=== PATIENT | female | born 1960 | race African-American/Black ===

== ENCOUNTER 2017-06-03 14:46 | Emergency (ER) | payer OTHER ==
[2017-06-03 15:22] LABS: #Basophils 0.1 thou/uL (0.0-0.2); #Eosinphils 0.1 thou/uL (0.0-0.7); #Lymphocytes 2.2 thou/uL (1.20-3.40); #Monocytes 0.4 thou/uL (0.11-0.59); #Neutrophils 3.6 thou/uL (1.40-6.50); %Eosinophils 1.6 % (0.0-10.0); %Lymphocytes 34.4 % (21.0-51.0); %Monocytes 6.7 % (0.0-10.0); %Neutrophils 56.3 % (42.0-75.0); Hemoglobin 13.1 g/dL (12.0-16.0); Mean Corpuscular HGB CONC 32.4 g/dL (32.0-36.0); Mean Corpuscular Volume 95.8 fl (81.0-99.0); Mean Platelet Volume 7.5 fL (7.4-10.4); Platelet Count 309 thou/uL (130-400); RBC Distribution Width 11.2 % (11.5-14.5); Red Blood Cell (RBC) Count 4.22 mill/uL (4.20-5.40); White Blood Cell (WBC) Count 6.4 thou/uL (4.8-10.8)
[2017-06-03 15:40] LABS: Lactic Acid 2.2 mmol/L (0.5-2.2)
[2017-06-03 15:42] LABS: Bilirubin Negative (Negative); Blood, Urine Negative (Negative); Clarity CLEAR (Clear); Glucose, Urine (Dipstick) >=1000 mg/dL (Negative); Leukocyte Negative (Negative); Nitrite Negative (Negative); Protein, Urine (Dipstick) Negative (Neg-Trace); Specific Gravity, Urine 1.025 (1.002-1.036)
[2017-06-03 15:46] LABS: ALT (SGPT) 13 U/L (8-55); AST (SGOT) 12 U/L (5-34); Albumin 3.9 g/dL (3.5-5.0); Alkaline Phosphatase 109 U/L (40-150); Anion Gap 14 mmol/L (10-20); BUN (Urea Nitrogen) 9 mg/dL (9.8-20.1); Bilirubin, Total 0.4 mg/dL (0.2-1.2); Calc. Creatinine Clearance 0 mL/min (70-130); Calcium 9.4 mg/dL (7.8-10.44); Carbon Dioxide 24 mmol/L (22-29); Chloride 104 mmol/L (98-107); Estimated GFR-MDRD 55; Globulin 2.8 g/dL (2.4-3.5); Glucose 450 mg/dL (70-105); Lipase 6 U/L (8-78); Potassium 5.1 mmol/L (3.5-5.1); Protein, Total 6.7 g/dL (6.0-8.3); Sodium 137 mmol/L (136-145)
[2017-06-03 15:51] LABS: Troponin I Less than 0.010 ng/mL (< 0.028)
[2017-06-03] MEDS ORDERED: Insulin Regular 300 UNITS/3 ML VIAL ONE (16:09)
--- NOTE | 2017-06-03 16:13 | RAD ---
FRONTAL RADIOGRAPH OF CHEST PORTABLE UPRIGHT: Date: 06/03/17 COMPARISON: 02/25/17 HISTORY: Pain, emergency exam. FINDINGS: There is mild increased linear interstitial density with pulmonary hyperinflation. Heart and mediast inal contours are unremarkable. There is no pneumothorax or pleural fluid and no focal consolidation or alveolar edema. IMPRESSION: Interstitial prominence and pulmonary hyperinflation. Question COPD. No acute findings. POS: [facility]
== END 2017-06-03 18:24 | disposition home or self-care (01) ==
LOC: ERS 14:46
DX: E11.65 Type 2 diabetes mellitus with hyperglycemia (principal); E86.0 Dehydration; E78.5 Hyperlipidemia, unspecified; I10 Essential (primary) hypertension; E11.40 Type 2 diabetes mellitus with diabetic neuropathy, unspecified; F41.9 Anxiety disorder, unspecified; F17.210 Nicotine dependence, cigarettes, uncomplicated; Z79.4 Long term (current) use of insulin; Z79.899 Other long term (current) drug therapy
CPT/HCPCS: 36415; 36416; 71045; 80053; 81003; 82010; 83605; 83690; 83880; 84484; 85025; 93005; 96361; 96374; J1815

== ENCOUNTER 2017-07-02 08:27 | Inpatient (IN) | payer OTHER ==
[2017-07-02] MEDS ORDERED: Sodium Bicarb 50 MEQ/50 ML Abboject 8.4% SYRINGE ONE ×3 (09:00→15:43)
[2017-07-02] MEDS ORDERED: EPINEPHrine 1 MG/10 ML Abboject SYRINGE ONE ×3 (09:00→12:10)
--- NOTE | 2017-07-02 09:33 | RAD ---
CHEST 1 VIEW: HISTORY: Altered mental status. Atrial fibrillation. Pain. COMPARISON: Chest radiograph 4 . FINDINGS: Lungs are without focal airspace consolidation, pneumothorax, or effusion. Cardiac silhouette and me diastinal contours appear within normal limits. No acute osseous abnormality. IMPRESSION: 1. No acute intrathoracic abnormality. No significant change. 2. Mild obstructive pulmonary disease. POS: [facility]
[2017-07-02 09:37] LABS: Hemoglobin 10.9 g/dL (12.0-16.0); Mean Corpuscular HGB CONC 30.2 g/dL (32.0-36.0); Mean Corpuscular Hemoglobin 30.1 pg (27.0-31.0); Mean Corpuscular Volume 99.6 fl (81.0-99.0); Mean Platelet Volume 9.5 fL (7.4-10.4); Platelet Count 182 thou/uL (130-400); RBC Distribution Width 11.7 % (11.5-14.5); Red Blood Cell (RBC) Count 3.61 mill/uL (4.20-5.40); White Blood Cell (WBC) Count 18.9 thou/uL (4.8-10.8)
[2017-07-02] MEDS ORDERED: Diltiazem 125 MG in Sodium Chloride 0.9% 100 ML IVPB SCH (09:45)
[2017-07-02 09:55] LABS: Base Excess-Venous -24.7 mmol/L (0 (+/- 2.5)); Bicarbonate (HCO3v) 7.2 mmol/L (1.0-85.0); CO2 Tension (PvCO2) 34.3 mmHg (41.0-51.0); Calcium, Ionized 0.82 mmol/L (1.12-1.32); O2 Tension (PvO2) 59.8 mmHg (35.0-45.0); Potassium 3.6 mmol/L (3.4-4.7); T. Carbon Dioxide 8.2 mmol/L (1.0-85.0); pH (Venous) 6.928 (7.35-7.45); vO2 Saturation-calc 71.3 % (94-98)
[2017-07-02] MEDS ORDERED: Lorazepam 2 MG/ML VIAL ONE (09:57)
[2017-07-02 09:59] LABS: Troponin I 0.021 ng/mL (< 0.028)
[2017-07-02 09:59] LABS: Bilirubin Negative (Negative); Blood, Urine Large (Negative); Clarity TURBID (Clear); Glucose, Urine (Dipstick) 500 mg/dL (Negative); Leukocyte Large (Negative); Nitrite Negative (Negative); Protein, Urine (Dipstick) 300 mg/dL (Neg-Trace); Specific Gravity, Urine 1.015 (1.002-1.036)
[2017-07-02 10:00] LABS: Band 28 % (5-11); Hypochromia SLIGHT = 6-15 cells (100X) (0-5/hpf); Lymphocytes 15 % (21-51); MDiff Complete? YES; Monocytes 4 % (0-10); Neutrophil 51 % (42-75); PLT Morphology Comment Appears Adequate; Reactive Lymphocytes 2 % (0-10); Toxic Granulation SLIGHT
[2017-07-02 10:01] LABS: Bacteria/HPF 4+ HPF (None Seen)
[2017-07-02 10:02] LABS: ALT (SGPT) 90 U/L (8-55); AST (SGOT) 143 U/L (5-34); Albumin 2.6 g/dL (3.5-5.0); Alkaline Phosphatase 230 U/L (40-150); Anion Gap 35 mmol/L (10-20); BUN (Urea Nitrogen) 58 mg/dL (9.8-20.1); Bilirubin, Total 1.1 mg/dL (0.2-1.2); Calc. Creatinine Clearance 0 mL/min (70-130); Calcium 7.3 mg/dL (7.8-10.44); Carbon Dioxide 9 mmol/L (22-29); Chloride 72 mmol/L (98-107); Estimated GFR-MDRD 10; Globulin 2.3 g/dL (2.4-3.5); Lipase 19 U/L (8-78); Magnesium 2.3 mg/dL (1.6-2.6); Protein, Total 4.9 g/dL (6.0-8.3); Sodium 112 mmol/L (136-145)
[2017-07-02 10:05] LABS: CKMB 164.2 ng/mL (0-6.6)
[2017-07-02 10:13] LABS: Pathc Cast-AUWi Flag 16.43 (0-2.49)
[2017-07-02 10:24] LABS: Hyaline Casts/LPF 0-3 HYALINE CAST LPF (0-3 Hyaline); Other Casts/LPF None Seen LPF (0-3 Hyaline); Transitional Epithelial 0-3 HPF (0-3)
[2017-07-02] MEDS ORDERED: Aspirin 300 MG Suppository ONE (10:49)
[2017-07-02] MEDS ORDERED: INSULIN REGULAR IVPB SCH (11:00)
[2017-07-02] MEDS ORDERED: ADMIXTURE FEE IVPB SCH (11:00)
[2017-07-02] MEDS ORDERED: SODIUM CHLORIDE IVPB SCH (11:00)
[2017-07-02] MEDS ORDERED: Piperacillin/Tazobactam 4.5 GM in Sodium Chloride 0.9% 100 ML IVPB SCH ×2 (12:00→15:00)
[2017-07-02] MEDS ORDERED: EPINEPHrine 1 MG/ML AMP ONE (12:02)
--- NOTE | 2017-07-02 12:14 | CT ---
NONCONTRAST CT HEAD: DATE: 07/02/17. HISTORY: Elevated glucose and altered mental status. COMPARISON: 04/13/05. FINDINGS: The basal ganglia appear hyperdense bilaterally which is overall nonspecific. However, metabolic abn ormality could not be entirely excluded. There is no evidence of an acute cortical infarction, hemor rhage, mass effect, or midline shift. Ventricular system is normal in size, shape, and position. Vi sualized paranasal sinuses and mastoid air cells are clear. Calvarial structures are intact. The increased density appearance of the basal ganglia was not appreciated on the prior exam. IMPRESSION: 1. Mild asymmetric increased density of each lentiform nucleus, which is asymmetric compared to the adjacent thalamus. Metabolic process could not be excluded. MRI of brain is recommended for further evaluation. 2. No evidence of an acute infarction or hemorrhage. 3. The above findings were discussed with Dr. Otero in the emergency department on 07/02/17 at 1148 hours. POS: [facility]
[2017-07-02 12:18] LABS: Glucose 1100 mg/dL (70-105)
[2017-07-02] MEDS ORDERED: Ventilator Sedation Protocol 1 EACH FS ONE (12:44)
[2017-07-02] MEDS ORDERED: Sodium Chloride 0.9% 1,000 ML IV SCH ×2 (12:45→14:30)
[2017-07-02] MEDS ORDERED: NS 0.9% w/ 20 MEQ KCL 1,000 ML IV PRN ×2 (12:48)
[2017-07-02] MEDS ORDERED: CCU Electrolyte Replacement 1 EACH IVPB ONE (12:48)
[2017-07-02] MEDS ORDERED: D5 1/2 NS w/20 mEq KCL 1,000 ML IV PRN (12:48)
[2017-07-02] MEDS ORDERED: Sodium Chloride 0.9% 1,000 ML IV PRN ×4 (12:48)
[2017-07-02] MEDS ORDERED: Dextrose 5 %-0.45 % NaCl 1,000 ML IV PRN (12:48)
[2017-07-02] MEDS ORDERED: Fentanyl BOLUS 250 ML IVPB PRN (12:59)
[2017-07-02] MEDS ORDERED: Morphine 4 MG/ML VIAL SLOW IVP PRN ×2 (12:59→17:37)
[2017-07-02] MEDS ORDERED: fentaNYL Citrate/PF 2,000 MCG in Sodium Chloride 0.9% 60 ML IV SCH (12:59)
[2017-07-02] MEDS ORDERED: Propofol BOLUS 1,000 MG/100 ML VIAL IV PRN (12:59)
[2017-07-02] MEDS ORDERED: Lorazepam 2 MG/ML VIAL SLOW IVP PRN (12:59)
[2017-07-02] MEDS ORDERED: Propofol 1,000 MG/100 ML VIAL IV PRN (12:59)
--- NOTE | 2017-07-02 12:59 | RAD ---
AP VIEW CHEST: HISTORY: Status post intubation. FINDINGS: AP view chest is obtained. Comparison is made to a previous exam from 07/02/17. AP view chest demonstrates a nasogastric tube in lace. The patient is intubated. Endotracheal tube is in good position. The lungs are well aerated. No evidence of acute intrathoracic abnormality is seen. No evidence of effusions, pneumonia, or pneumothorax is seen. IMPRESSION: Unremarkable AP view chest. Endotracheal tube is in good position. POS: [facility]
[2017-07-02 13:11] LABS: Actual Bicarbonate (HCO3a) 6.9 mEq/L (22-26); Base Excess (BEa) -26.6 mEq/L (0 (+/-) 2.5); CO2 Tension 45.2 mmHg (35.0-45.0); Calcium, Ionized 0.9 mmol/L (1.12-1.30); Hematocrit-ABG 42.1 % (36.0-47.0); Hemoglobin (Hb) 9.8 g/dL (12.0-16.0); O2 Tension (PaO2) 357.1 mmHg (80.0-100.0)
[2017-07-02 13:12] LABS: Puncture Site RBA
[2017-07-02] MEDS ORDERED: Sodium Bicarbonate 150 MEQ in Sodium Chloride 0.45% 1,000 ML IV SCH (13:15)
[2017-07-02 13:19] LABS: Mean Corpuscular HGB CONC 30.9 g/dL (32.0-36.0); Mean Corpuscular Hemoglobin 31.4 pg (27.0-31.0); Mean Platelet Volume 9.5 fL (7.4-10.4); Platelet Count 153 thou/uL (130-400); RBC Distribution Width 11.7 % (11.5-14.5)
[2017-07-02] MEDS ORDERED: Vancomycin HCl 1 GM in Sodium Chloride 0.9% 250 ML 250 ML IVPB SCH (13:30)
[2017-07-02 13:37] LABS: Band 36 % (5-11); Lymphocytes 19 % (21-51); MDiff Complete? YES; Metamyelocyte 10 % (0-0); Monocytes 6 % (0-10); Myelocyte 6 % (0-0); Neutrophil 23 % (42-75); Nucleated RBC 1 % (0); PLT Morphology Comment Appears Adequate; Reflex for Review?? YES; Toxic Granulation MODERATE; Vacuoles MODERATE
[2017-07-02] MEDS ORDERED: Norepinephrine 8 MG/0.9% NS 250 ML ONE (13:50)
[2017-07-02 14:03] LABS: ALT (SGPT) 97 U/L (8-55); AST (SGOT) 195 U/L (5-34); Albumin 2.3 g/dL (3.5-5.0); Alkaline Phosphatase 608 U/L (40-150); BUN (Urea Nitrogen) 59 mg/dL (9.8-20.1); Bilirubin, Total 0.9 mg/dL (0.2-1.2); Calc. Creatinine Clearance 0 mL/min (70-130); Calcium 7.5 mg/dL (7.8-10.44); Carbon Dioxide Less than 8 mmol/L (22-29); Chloride 76 mmol/L (98-107); Estimated GFR-MDRD 10; Globulin 2.8 g/dL (2.4-3.5); Glucose 1068 mg/dL (70-105); Potassium 4.1 mmol/L (3.5-5.1); Protein, Total 5.1 g/dL (6.0-8.3); Sodium 115 mmol/L (136-145)
[2017-07-02 14:04] LABS: Lactic Acid 18.2 mmol/L (0.5-2.2)
[2017-07-02] MEDS ORDERED: Sodium Bicarbonate 150 MEQ in Dextrose 5% in Water 850 ML IV SCH (14:15)
[2017-07-02] MEDS ORDERED: Amiodarone In Dextrose 200 ML IVPB SCH (14:15)
[2017-07-02] MEDS ORDERED: Lacri-Lube Opth Oint 3.5 GM TUBE EA EYE PRN (14:28)
[2017-07-02] MEDS ORDERED: Sodium Bicarb 50 MEQ/50 ML Abboject 8.4% SYRINGE IVP SCH (14:30)
[2017-07-02] MEDS ORDERED: Vasopressin 40 UNIT, Admixture Fee 1 EACH in Sodium Chloride 0.9% 100 ML IV SCH (14:30)
--- NOTE | 2017-07-02 14:51 | CON ---
DATE OF CONSULTATION: 07/02/2017 SERVICE: Pulmonary Medicine. REASON FOR CONSULTATION: Respiratory failure. HISTORY OF PRESENT ILLNESS: The patient has a 56-year-old -[place] female with past medical history significant for medical noncompliance and schizophrenia. Apparently, she does not take any of her medications. Either way, home health was out taking a look at her. She was seen by then roughly 3 days ago. She had so much weakness. She was crawling around in her hands and knees. The home health gentle wanted her to go to the emergency department. She refused to go and ask the home health agent not to tell anybody that she was so sick. Apparently, she has been telling people recently that she is exhausted with all of her medical reflections and is ready to no longer continue forward. Either way, she was found to be essentially nonresponsive 3 days later on the morning of admission. She was brought to the emergency department. Initially, she was breathing fairly well. She was alert and was able to talk to some of the providers. That being said, after initiation of some antibiotics, she decompensated. She had a bradyarrhythmic event. She required a very brief course of chest compressions. She had spontaneous return of circulation, but at that time, she was intubated and lying. She got 3 liters of fluid, and antibiotics. She is unable to provide any historical elements because of her current condition. PAST MEDICAL HISTORY: 1. Type 2 diabetes mellitus. 2. Hypertension. 3. Dyslipidemia. 4. Peripheral neuropathy. 5. Schizophrenia. 6. Medical noncompliance. PAST SURGICAL HISTORY: 1. Hysterectomy. 2. Right foot surgery. ALLERGIES: No known drug allergies. MEDICATIONS: List of her inpatient medications were reviewed. Multiple updates were made. FAMILY HISTORY: Noncontributory. SOCIAL HISTORY: Negative for known tobacco, alcohol or illicit drug use. REVIEW OF SYSTEMS: This cannot be obtained as the patient is currently intubated. PHYSICAL EXAMINATION: VITAL SIGNS: Currently afebrile. She is actually hypothermic a warmer is in place. Pulse ranges from 50-120. Blood pressure is 75/50, respirations 28, saturation 98% on 41% FiO2. GENERAL: Patient is intubated. She is on no sedation currently. HEENT: Normocephalic, atraumatic. Sclerae are white, conjunctivae pink. Oral and nasal mucosa is dry. She has got blood coming out of her OG tube. The endotracheal tube is in place. HEART: Irregular. ABDOMEN: Soft, nontender, nondistended. Bowel sounds are positive. MUSCULOSKELETAL: No cyanosis or clubbing. There is no pitting throughout. There is skin tenting throughout. GENITOURINARY: Coelho catheter in place. It is putting out purulent bloody fluid. NEUROLOGIC: Grossly nonfocal on presentation to the hospital. LABORATORY DATA: WBC 15.0, hemoglobin 10.0, platelets 153,000, lymphocytes 19, neutrophils only 23%. D-dimer 5.93. A pH 6.8, pCO2 of 45, pO2 of 357. Sodium 115, bicarbonate below 8, anion gap greater than 35, creatinine 5.56, glucose 1068, calcium 7.5, lactate 18.2 and up trending, AST and ALT are both elevated and up trending, ionized calcium 0.82. Urinalysis is consistent with urinary tract infection with positive leukocyte esterase, large white blood cells, and a few red blood cells. Urine bacteria is 4+. IMAGIN. CT of the brain demonstrates asymmetric increased density of each lentiform nucleus. Otherwise, no blood was identified. 2. Chest x-ray demonstrates enteric catheters coursing well below the level of the diaphragm. There is an endotracheal tube that is roughly 6 cm above the level of the lana. No acute cardiopulmonary abnormality is otherwise identified. On this one, the central line has not been placed yet. ASSESSMENT: 1. Metabolic encephalopathy. 2. Septic shock. 3. Urinary tract infection, suspected. 4. Disseminated intravascular coagulation, suspected. 5. Multisystem organ failure. 6. Acute kidney injury. 7. Shock liver. 8. Hypokalemia. 9. Hyponatremia. 10. Diabetic ketoacidosis. PLAN: I will replace the calcium. We will call Nephrology for emergent dialysis as the patient's acidosis is now likely driving most of her dysfunction. She is already got empiric antibiotics directed at issues. I have made multiple adjustments to mechanical ventilator. She gets better minute volume with pressure control ventilation. We will switch her bicarbonate drip over to D5 water with 3 amps of bicarbonate. Pulmonary Critical Care will continue to follow along. This patient is extremely sick and there is a very good possibility that she will not survive this hospital stay. Family has been updated. Critical care time: 60 minutes. [facility]
[2017-07-02] MEDS ORDERED: Hydrocortisone Sod Succ/PF 100 mg/2 ml Vial IVP SCH (15:00)
[2017-07-02] MEDS ORDERED: Amiodarone HCl 450 MG, Admixture Fee 1 EACH in Dextrose 5% in Water 250 ML IVPB SCH (15:30)
[2017-07-02] MEDS: Calcium Chloride 13.6 MEQ in Sodium Chloride 0.9% 100 ML IVPB SCH ×2 (15:55→17:20)
[2017-07-02] MEDS ORDERED: Sodium Bicarbonate 150 MEQ in Sterile Water Injection 850 ML IV SCH (16:00)
--- NOTE | 2017-07-02 16:44 | HP ---
PRIMARY CARE PHYSICIAN: Dr. Quiñonez. CHIEF COMPLAINT: Altered mental status. HISTORY OF PRESENT ILLNESS: This is a 56-year-old female with a history of diabetes, medication nonc ompliance who was found nonresponsive by her home health nurse earlier today and subsequently EMS was called and the patient brought into the emergency department. At the time of my evaluation, the patient is unable to give any history. She was undergoing intubati on at the time of my initial evaluation. In the emergency department, the patient was found to be hy pothermic with a glucose of 100, ketones of 6 and in atrial fibrillation with a rapid ventricular res ponse. Patient also was becoming intermittently bradycardic with heart rates down into the 30s and m aintained on non-responsiveness with concern for ability to protect her airway. The patient was jose r gently intubated in the emergency department. Post-intubation, patient in the emergency department a lso had a loss of pulses and regained spontaneous circulation after CPR x1 round and epinephrine x1. Please see the ER notes for further details. REVIEW OF SYSTEMS: Unable to obtain directly from the patient. I did discuss the patient's conditio n, diagnosis and prognosis and multiple family members who last saw her 2 days ago and they are also unable to help provide a surrogate review of systems for the patient. PAST MEDICAL HISTORY: 1. Insulin-dependent diabetes. 2. Peripheral neuropathy. 3. Hypertension. 4. Hyperlipidemia. 5. Schizophrenia. 6. Status post hysterectomy. 7. Status post "foot surgery." These were obtained from prior records. HOME MEDICATIONS: Still pending confirmation, but preliminary list seems to suggest that the patient currently takes metformin 1000 mg p.o. b.i.d., simvastatin 80 mg p.o. at bedtime, Meloxicam 5 mg p.o . daily, lisinopril 20 mg p.o. daily, Humulin 70/30 20 units at bedtime, 30 units q.a.m. ALLERGIES: No known allergies. FAMILY HISTORY: Per family, multiple family members with diabetes and hypertension. SOCIAL HISTORY: Patient lives home alone. She does have home health check on her and she has family that does visit frequently and intermittently. She has multiple siblings, 14. She also has 2 sons, one is currently at bedside and is awaiting the other son to be present too and they would to be [facility] medical decision makers. The patient's siblings have deferred a DNR status and other medical [facility] decisions to the patient's 2 sons. The patient is currently unable to state her own preferences. PHYSICAL EXAMINATION: GENERAL: Patient is intubated. She is currently nonresponsive. ET tube is in place. HEENT: Normocephalic, atraumatic, slightly dry mucous membranes. CARDIOVASCULAR: S1, S2. No murmurs, rubs or gallops. Pulses 2+ bilateral upper extremities and katiana ateral lower extremities, no pitting pedal edema. RESPIRATORY: Coarse ventilator sounds throughout bilateral pulmonary hall. ABDOMEN: Positive bowel sounds, soft. LABORATORY DATA AND IMAGING: WBC 15.0, hemoglobin 10.0, hematocrit 32.5, platelets 153. D-dimer 5.9 3. ABG: pH of 6.8, pCO2 of 45.2, pO2 of 357. Sodium 115, potassium 4.1, chloride 76, bicarbonate l ess than 8, BUN 59, creatinine 5.56, glucose 108. Lactic acid 18.2, calcium 7.5, magnesium 3.0, tota l bilirubin 0.9, AST 195, ALT 97, alkaline phosphatase 608. Initial troponin 0.021. UA is significa nt for 300 protein, 500 glucose, 15 of ketones, large amount of blood, leukocyte esterase large, rbcs 11-20, wbcs greater than 50 and 4-6 squamous epithelial cells, 4+ bacteria and 6.36 beta hydroxybuty rate. On 07/02/2017, CT of the brain. Impression: Mild asymmetric increased density of each lenticular fo rmed nucleus, which is asymmetric compared to the adjacent thalamus. Metabolic process could not be excluded. MRI of brain is recommended for further evaluation. No evidence of acute infarction or he morrhage. On 07/02/2017, chest x-ray. Impression: Unremarkable AP view of the chest. ET tube is in good posi tion. Of note, patient post-intubation also had a fair amount of reddish fluid suctioned out from her mouth . ASSESSMENT AND PLAN: A 56-year-old female who initially presented with altered mental status. 1. Altered mental status, likely metabolic encephalopathy at this point in time due to multiple acut e medical issues as will be discussed below. 2. Severe sepsis with elevated lactate, end organ disease damage. Currently, One obvious foci of in fection is urinary tract infection. Continue with IV fluids for the patient. Normal saline with bic arbonate. Normal saline with 3 amps of bicarbonate, and given the patient's significant acidosis, we will continue to serially monitor electrolytes, monitor hemodynamics. The patient has been given em piric doses of vancomycin and Zosyn in the emergency department. 3. Diabetic ketoacidosis, initiate insulin drip. Continue with IV fluids as noted above, serial DKA protocol as tolerated. 4. Atrial fibrillation with rapid ventricular response has been intermittent. Patient was trialed o n a diltiazem drip. Unfortunately, had episodic bradycardia as well with difficult to manage rate co ntrol. We will continue to monitor. Low threshold for Cardiology consult if needed. 5. Acute kidney injury without any known prior history of chronic renal disease; however, the patien t certainly has risk factors including diabetes and hypertension. We will consult Nephrology. 6. Concern for the possibility of upper GI blood loss. We will place the patient on Protonix. The patient is already receiving IV fluids as described above. We will transfuse as needed, serial H&H. 5. Leukocytosis, likely secondary to the above. 6. Acidosis, multifactorial, see above. 7. Diet: N.p.o. 8. Activity: Bed rest. 9. Consultations to scientific illustrator for very critically ill patient. CODE STATUS: Currently FULL. Please see advanced care planning note for further details.
[2017-07-02] MEDS ORDERED: Lorazepam 2 MG/ML VIAL IVPB PRN (17:36)
[2017-07-02] MEDS ORDERED: Piperacillin/Tazobactam 2.25 GM in Sodium Chloride 0.9% 100 ML IVPB SCH (18:00)
[2017-07-02] MEDS ORDERED: Ipratropium Bromide 2.5 ml Neb NEB SCH (19:00)
[2017-07-02] MEDS ORDERED: Pantoprazole 40 MG VIAL IVP SCH (21:00)
--- NOTE | 2017-07-03 07:00 | CON ---
DATE OF CONSULTATION: 07/02/2017 CONSULTING PHYSICIAN: Rebeca Bettencourt M.D. REQUESTING PHYSICIAN: Dr. Almeida. REASON FOR CONSULTATION: Severe metabolic acidosis, need for hemodialysis. IMPRESSION: 1. Severe metabolic acidosis in the context of sepsis. 2. Acute renal failure, hemodynamically mediated. PLAN: I did make all the arrangements for emergent hemodialysis to address the severe metabolic acid osis; however, in the process of getting ready to secure a dialysis access. The patient's son indica simran no desire to further aggressive treatment; therefore, decision was taken to stop the plan for hem odialysis initiation. HISTORY OF PRESENT ILLNESS: History is that of 56-year-old female patient with the history, given th e fact that the patient is intubated. The patient apparently was brought in septic and noted to be s everely metabolically acidotic. REVIEW OF SYSTEMS: Could not be obtained. SOCIAL HISTORY AND FAMILY HISTORY: Could not be verified. PHYSICAL EXAMINATION: On examination, patient noted to be on life support and on multiple pressors. The rest of the system examination unremarkable related to the presenting illness.
== END 2017-07-02 18:05 | disposition expired | DRG 871 ==
LOC: ERS 08:27 → CCU 14:33
PROVIDERS: ADMIT Internal Medicine; ATTEND Internal Medicine
PROC: 5A1935Z Respiratory Ventilation, Less than 24 Consecutive Hours (ICD-10-PCS; principal; 2017-07-02)
PROC: 0BH17EZ Insertion of Endotracheal Airway into Trachea, Via Natural or Artificial Opening (ICD-10-PCS; 2017-07-02)
PROC: 5A12012 Performance of Cardiac Output, Single, Manual (ICD-10-PCS; 2017-07-02)
DX: A41.9 Sepsis, unspecified organism (principal); G93.41 Metabolic encephalopathy; D65 Disseminated intravascular coagulation [defibrination syndrome]; R65.21 Severe sepsis with septic shock; K72.00 Acute and subacute hepatic failure without coma; E11.10 Type 2 diabetes mellitus with ketoacidosis without coma; N17.9 Acute kidney failure, unspecified; E87.1 Hypo-osmolality and hyponatremia; N39.0 Urinary tract infection, site not specified; E11.42 Type 2 diabetes mellitus with diabetic polyneuropathy; Z51.5 Encounter for palliative care; Z66 Do not resuscitate; I10 Essential (primary) hypertension; E78.5 Hyperlipidemia, unspecified; F20.9 Schizophrenia, unspecified; Z90.710 Acquired absence of both cervix and uterus; I48.91 Unspecified atrial fibrillation; Z79.818 Long term (current) use of other agents affecting estrogen receptors and estrogen levels; Z91.14 Patient's other noncompliance with medication regimen; E87.6 Hypokalemia; E86.0 Dehydration; F17.210 Nicotine dependence, cigarettes, uncomplicated
CPT/HCPCS: 36415; 36416; 70450; 71045; 80053; 81003; 81015; 82010; 82271; 82274; 82330; 82553; 82803; 82805; 83605; 83690; 83735; 84484; 85025; 85060; 85379; 87040; 87077; 87186; 93005; 94002; 94760; A4217; A4353; C1752; J0171; J0282; J1720; J1815; J2060; J2543; J3370; J7050; J7070